=== PATIENT | male | born 1970 | race African-American/Black ===

== ENCOUNTER 2017-02-25 09:12 | Emergency (ER) | payer SELFPAY ==
[~2017-02-25] VITALS: Ht 177.8 cm; Wt 87.0 kg
[2017-02-25] MEDS: LORAZEPAM 2MG/ML CPJ IV STA (11:07)
[2017-02-25] MEDS: SODIUM CHLORIDE 0.9% 1,000 ML IV ONE (11:07)
[2017-02-25 11:21] LABS: INR 1.1; PROTHROMBIN TIME 11.2 sec (9.4-11.6)
[2017-02-25 11:33] LABS: CARBON DIOXIDE 24 mEq/L (21-32); CHLORIDE 103 mEq/L (98-107); CREATINE KINASE 637 IU/L (39-308); ETHANOL BLOOD < 10 mg/dL; TROPONIN I < 0.02 ng/mL (0.00-0.04)
[2017-02-25 11:34] LABS: HEMATOCRIT. 50.5 % (42.0-52.0); HEMOGLOBIN. 17.9 g/dL (14.0-18.0); MEAN CORPUSCULAR HEMOGLOBIN 29.5 pg (28.0-32.0); MEAN CORPUSCULAR VOLUME 83.3 fL (80.0-94.0); RED BLOOD CELL COUNT 6.06 mill/uL (4.7-6.1); RED CELL DISTRIBUTION WIDTH 14.4 % (11.6-14.6)
[2017-02-25 12:01] LABS: CLARITY URINE CLEAR (CLEAR); COLOR URINE YELLOW (YELLOW); GLUCOSE URINE NEGATIVE (NEGATIVE); KETONES URINE 1+ (NEGATIVE); LEUKOCYTE ESTERASE URINE NEGATIVE (NEGATIVE); NITRITE URINE NEGATIVE (NEGATIVE); OCCULT BLOOD URINE NEGATIVE (NEGATIVE); PROTEIN URINE NEGATIVE (NEGATIVE); SPECIFIC GRAVITY URINE 1.008 (1.005-1.030); UROBILINOGEN URINE 0.2 E.U./dL (0.2-1.0)
[2017-02-25 12:20] LABS: *AMPHETAMINES SCREEN URINE PRESUMTIVE POSITIVE (NEGATIVE); *BARBITURATES SCREEN URINE NEGATIVE (NEGATIVE); *BENZODIAZEPINES SCREEN URINE NEGATIVE (NEGATIVE); *COCAINE SCREEN URINE NEGATIVE (NEGATIVE); CANNABINOID URINE SCREEN NEGATIVE (NEGATIVE); METHADONE URINE SCREEN NEGATIVE (NEGATIVE); OPIATES URINE SCREEN NEGATIVE (NEGATIVE); PHENCYCLIDINE URINE SCREEN NEGATIVE (NEGATIVE)
[2017-02-25 12:36] LABS: PLATELET ESTIMATE NORMAL
[2017-02-25 13:46] VITALS: BP 108/74
[2017-02-25] MEDS: POTASSIUM CHLORIDE 20MEQ TABLET SR PO ONE (14:00)
== END 2017-02-25 16:22 | disposition home or self-care (01) ==
LOC: ER 09:12
DX: T43.621A Poisoning by amphetamines, accidental (unintentional), initial encounter (principal); R00.0 Tachycardia, unspecified; E87.6 Hypokalemia; R00.2 Palpitations; F17.200 Nicotine dependence, unspecified, uncomplicated; F12.10 Cannabis abuse, uncomplicated; Y92.89 Other specified places as the place of occurrence of the external cause
CPT/HCPCS: 36415; 71010; 80053; 80305; 80307; 80329; 81003; 82550; 82962; 83880; 84443; 84484; 85025; 85610; 93005; 96361; 96374; 99285; G0482; J2060; J7030; Z7610